=== PATIENT | female | born 1960 | race Caucasian/White ===

== ENCOUNTER 2020-01-23 16:28 | Emergency (ER) | payer BC ==
[2020-01-23 16:38] VITALS: BP 133/94; PULSE 75
--- NOTE | 2020-01-23 17:12 | EDM.PDOC ---
ED HPI GENERAL MEDICAL PROBLEM - General Chief Complaint: Lower Extremity Injury/Pain Stated Complaint: RT ANKLE AND LT ARM INJURY Time Seen by Provider: 01/23/20 16:33 Source of Information: Reports: Patient History Limitations: Reports: No Limitations - History of Present Illness INITIAL COMMENTS - FREE TEXT/NARRATIVE: Patient is a 59-year-old female who presents with complaints of pain to her right ankle, left knee, and left arm after a fall this morning. She states that she misstepped causing her ankle to twist. She then landed on her left knee and left arm. She has been able to ambulate since the time of the injury. States the majority of her pain is to her right ankle. She took some Tylenol for pain approximately 4 hours ago. Right Ankle Pain Score (Numeric/FACES): 8 - Related Data Allergies Allergy/AdvReac Type Severity Reaction Status Date / Time No Known Allergies Allergy Verified 01/23/20 16:38 Home Meds: Home Meds Aspirin [Adult Low Dose Aspirin EC] 81 mg PO DAILY 05/03/14 [History] Esomeprazole [NexIUM] 40 mg PO DAILY 05/03/14 [History] Losartan/Hydrochlorothiazide [Losartan-HCTZ 100-12.5 MG] 1 tab PO DAILY 05/03/14 [History] Metoprolol Succinate [Toprol Xl] 100 mg PO DAILY 05/03/14 [History] Simvastatin [Zocor] 40 mg PO DAILY 05/03/14 [History] amLODIPine [Norvasc] 2.5 mg PO DAILY 05/03/14 [History] Acetaminophen/HYDROcodone [[place] 325-5 MG] 1 - 2 tab PO Q6H PRN #30 tablet 02/27/15 [Rx] Docusate Sodium [Colace] 100 mg PO DAILY 09/05/15 [History] Past Medical History Cardiovascular History: Reports: High Cholesterol, Hypertension Respiratory History: Reports: Bronchitis, Recurrent Gastrointestinal History: Reports: Chronic Constipation, GERD 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 ED EXAM, GENERAL - Physical Exam Exam: See Below Exam Limited By: No Limitations General Appearance: Alert, WD/WN, No Apparent Distress Respiratory/Chest: No Respiratory Distress, Lungs Clear, Normal Breath Sounds, No Accessory Muscle Use, Chest Non-Tender Cardiovascular: Normal Peripheral Pulses, Regular Rate, Rhythm, No Edema, No Gallop, No JVD, No Murmur, No Rub Extremities: Other (Abrasion, no cyst, and mild edema to the left knee. Patient has full range of motion of the joint. Edema to the lateral aspect of the right ankle. No ecchymosis or deformity noted. Patient also has full range of motion of this joint.) Neurological: Alert, Oriented, CN II-XII Intact, Normal Cognition, Normal Gait, Normal Reflexes, No Motor/Sensory Deficits Psychiatric: Normal Affect, Normal Mood Skin Exam: Warm, Dry, Intact, Normal Color, No Rash Course - Vital Signs Last Recorded V/S: Last Vital Signs Temp 97.7 F 01/23/20 16:35 Pulse 75 01/23/20 16:35 Resp 18 01/23/20 16:35 BP 133/94 H 01/23/20 16:35 Pulse Ox 98 01/23/20 16:35 - Orders/Labs/Meds Orders: Active Orders 24 hr Category Date Time Status Ankle Min 3V Rt [CR] Stat Exams 01/23/20 17:05 Taken Knee 3V Lt [CR] Stat Exams 01/23/20 17:05 Taken DME for Discharge [COMM] Routine Oth 01/23/20 18:27 Ordered Meds: Medications Discontinued Medications Generic Name Dose Route Start Last Admin Trade Name Ofelia PRN Reason Stop Dose Admin Ketorolac Tromethamine 60 mg 01/23/20 18:24 01/23/20 18:35 Toradol IM 01/23/20 18:25 60 mg ONETIME ONE Administration - Re-Assessments/Exams Free Text/Narrative Re-Assessment/Exam: 01/23/20 1825 X-rays of the knee and ankle are negative for any acute fractures. We will give her a dose of IM Toradol. I have ordered an air splint to her right ankle. Discharge instructions as documented. Departure - Departure Time of Disposition: 18:27 Disposition: Home, Self-Care 01 Condition: Good Clinical Impression: Ankle sprain Qualifiers: Encounter type: initial encounter Involved ligament of ankle: unspecified ligament Laterality: right Qualified Code(s): S93.401A - Sprain of unspecified ligament of right ankle, initial encounter Knee contusion Qualifiers: Encounter type: initial encounter Laterality: left Qualified Code(s): S80.02XA - Contusion of left knee, initial encounter - Discharge Information *PRESCRIPTION DRUG MONITORING PROGRAM REVIEWED*: No *COPY OF PRESCRIPTION DRUG MONITORING REPORT IN PATIENT TORI: No Instructions: How to Use a Stirrup Ankle Brace, [id number], Ankle Sprain, [id number], Contusion, [id number] Referrals: Carolina Garcia MD [Primary Care Provider] - Forms: ED Department Discharge Additional Instructions: You were seen in the emergency department today for pain to your right ankle, left knee, and left arm after a fall. X-rays were done of your right ankle and left knee and found to be normal. It is likely that you have bruised your left knee and sprained your right ankle. While in the ER you received a shot of Toradol for pain and a splint was applied to your right ankle. Recommend that you ice and elevate the knee and ankle when at rest. You may use [id number] Tylenol or ibuprofen as needed for pain. Return to the ER as needed. Sepsis Event Note (ED) - Evaluation Sepsis Screening Result: No Definite Risk - Focused Exam Vital Signs: Vital Signs Temp Pulse Resp BP Pulse Ox 01/23/20 16:35 97.7 F 75 18 133/94 H 98 - My Orders Last 24 Hours: My Active Orders 01/23/20 17:05 Ankle Min 3V Rt [CR] Stat Knee 3V Lt [CR] Stat 01/23/20 18:27 DME for Discharge [COMM] Routine - Assessment/Plan Last 24 Hours: My Active Orders 01/23/20 17:05 Ankle Min 3V Rt [CR] Stat Knee 3V Lt [CR] Stat 01/23/20 18:27 DME for Discharge [COMM] Routine
[2020-01-23] MEDS ORDERED: Ketorolac 60 MG/2 ML SDV IM ONE (18:24)
--- NOTE | 2020-01-24 08:21 | CR ---
Right ankle: 3 views of the right ankle were obtained. Comparison: No prior right ankle exam. Plantar calcifications are seen. Small spur noted at the attachment of the Achilles tendon the calcaneus. Well-corticated bony density is noted off the inferior fibula compatible with old injury. Soft tissue swelling is noted. Minimal cortical avulsion fracture is noted off the distal tip of the fibula. No additional fracture or other bony abnormality is seen. Impression: 1. Minimal cortical avulsion fracture off the distal tip of the fibula. 2. Soft tissue swelling. 3. Other chronic findings. Diagnostic code #3 This report was dictated in MDT I agree with preliminary report from [facility], finalized on 01/23/20, 7:19 PM Central Daylight Time
--- NOTE | 2020-01-24 08:22 | CR ---
Left knee: AP, lateral and sunrise patellar views of the left knee were obtained. Minimal narrowing off the lateral patellofemoral joint is seen. Minimal patellar osteophyte is seen. Small spur is noted at the attachment of the quadriceps tendon to the patella. Mild medial joint space narrowing is seen. Lateral joint space is preserved. No acute fracture or other bony abnormality is seen. No joint effusion is seen. Impression: 1. Mild degenerative change as noted above. 2. Nothing acute is seen on 3 view left knee study. Diagnostic code #2 This report was dictated in MDT
== END 2020-01-23 18:50 | disposition home or self-care (01) ==
LOC: JD.ED 16:28
DX: S93.401A Sprain of unspecified ligament of right ankle, initial encounter (principal); S80.02XA Contusion of left knee, initial encounter; E78.00 Pure hypercholesterolemia, unspecified; I10 Essential (primary) hypertension; K21.9 Gastro-esophageal reflux disease without esophagitis; Z79.82 Long term (current) use of aspirin; Z79.899 Other long term (current) drug therapy; X50.1XXA Overexertion from prolonged static or awkward postures, initial encounter
CPT/HCPCS: 73562; 73610; 96372; 99283; J1885

== ENCOUNTER 2020-04-06 07:32 | Emergency (ER) | payer BC ==
[2020-04-06 07:44] VITALS: BP 149/88; PULSE 55
[2020-04-06] MEDS ORDERED: Acetaminophen/oxyCODONE 325-5 MG Tab PO ONE (07:53)
[2020-04-06] MEDS ORDERED: predniSONE 20 MG Tab PO ONE (07:54)
[2020-04-06] MEDS ORDERED: Ondansetron 4 MG Tab.DIS PO ONE (07:54)
--- NOTE | 2020-04-06 07:58 | EDM.PDOC ---
ED HPI GENERAL MEDICAL PROBLEM - General Chief Complaint: Neck Problem Stated Complaint: NECK PAIN Time Seen by Provider: 04/06/20 07:48 Source of Information: Reports: Patient History Limitations: Reports: No Limitations - History of Present Illness INITIAL COMMENTS - FREE TEXT/NARRATIVE: 60-year-old female presents to the ED for gradually worsening left cervical neck pain. No known injuries falls. Pain this morning was excruciating when she is stood up particular at the base of the left side of the skin scalp that caused her to nearly fall to the floor due to the severity of the muscle spasm. No known injuries. No recent chiropractic manipulation or massage therapy. No previous similar problems with her neck. Pain radiates into the left superior belly of the trapezius muscle but not down the arm or leg. She has no problems with bowel or bladder function. She has not taken any medication yet this morning for pain relief. Onset: Gradual Onset Date: 04/04/20 Duration: Day(s):, Getting Worse Location: Reports: Neck Quality: Reports: Ache, Sharp, Stabbing Severity: Moderate Improves with: Reports: Rest Worsens with: Reports: Movement Context: Reports: Other. 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) (No medications so far today.) Neck Pain Score (Numeric/FACES): 10 - Related Data Allergies Allergy/AdvReac Type Severity Reaction Status Date / Time No Known Allergies Allergy Verified 04/06/20 07:44 Home Meds: Home Meds Aspirin [Adult Low Dose Aspirin EC] 81 mg PO DAILY 05/03/14 [History] Esomeprazole [NexIUM] 40 mg PO DAILY 05/03/14 [History] Losartan/Hydrochlorothiazide [Losartan-HCTZ 100-12.5 MG] 1 tab PO DAILY 05/03/14 [History] Metoprolol Succinate [Toprol Xl] 100 mg PO DAILY 05/03/14 [History] Simvastatin [Zocor] 40 mg PO DAILY 05/03/14 [History] amLODIPine [Norvasc] 2.5 mg PO DAILY 05/03/14 [History] Acetaminophen/HYDROcodone [[place] 325-5 MG] 1 - 2 tab PO Q6H PRN #30 tablet 02/27/15 [Rx] Docusate Sodium [Colace] 100 mg PO DAILY 09/05/15 [History] Diclofenac Sodium [Voltaren] 75 mg PO BIDMEALS #16 tab.cr 04/06/20 [Rx] Hydrocodone/Acetaminophen [[place] 5-325 Tablet] 1 - 2 each PO Q4H PRN #18 tablet 04/06/20 [Rx] predniSONE [Prednisone] 20 mg PO BID #11 tablet 04/06/20 [Rx] Past Medical History Cardiovascular History: Reports: High Cholesterol, Hypertension Respiratory History: Reports: Bronchitis, Recurrent Gastrointestinal History: Reports: Chronic Constipation, GERD 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 Other Musculoskeletal History: Pt reports chronic back pain - Past Surgical History Female Surgical History: Reports: Hysterectomy Social & Family History - Caffeine Use Caffeine Use: Reports: Coffee - Living Situation & Occupation Living situation: Reports: Occupation: Unemployed ED ROS GENERAL - Review of Systems Review Of Systems: See Below Constitutional: Denies: Fever, Chills, Malaise, Weakness, Fatigue HEENT: Reports: No Symptoms Respiratory: Reports: No Symptoms Cardiovascular: Reports: No Symptoms Endocrine: Reports: No Symptoms GI/Abdominal: Reports: No Symptoms Musculoskeletal: Reports: Neck Pain, Shoulder Pain (Left superior trapezius muscle pain.) Skin: Reports: No Symptoms Neurological: Reports: No Symptoms Psychiatric: Reports: No Symptoms Hematologic/Lymphatic: Reports: No Symptoms Immunologic: Reports: No Symptoms ED EXAM, UPPER BACK/NECK PAIN - Physical Exam Exam: See Below Exam Limited By: No Limitations General Appearance: Alert, WD/WN, Moderate Distress, Other (Temperature is 36.0. Heart rate 55 and sinus respiratory is 18 with O2 sats of 98% room air BP slightly elevated 149/88.) Eye Exam: Bilateral Eye: Normal Inspection, PERRL Throat/Mouth Exam: Normal Inspection, Normal Lips, Normal Oropharynx Head Exam: Atraumatic, Normocephalic Neck Exam: Limited Range of Motion (She has loss of flexion and extension of the neck.), Muscle Spasm, Paraspinous Muscle Tender (Diffuse paraspinous muscle tenderness on the left side particularly mid cervical spine.), Other (Axial traction with the neck to the left causes pain localized to the base of the scalp on the left side but not radiating to her left upper extremity.) Nexus Criteria: No: Posterior, Midline Cervical Tenderness, Evidence of Intoxication, Altered Level of Consciousness, Focal Neurological Deficit, Painful Distraction Injuries Cardiovascular/Respiratory: Regular Rate, Rhythm, No M/R/G, Normal Peripheral Pulses Course - Vital Signs Last Recorded V/S: Last Vital Signs Temp 36.0 C L 04/06/20 07:41 Pulse 55 L 04/06/20 07:41 Resp 18 04/06/20 07:41 BP 149/88 H 04/06/20 07:41 Pulse Ox 98 04/06/20 07:41 - Orders/Labs/Meds Meds: Medications Discontinued Medications Generic Name Dose Route Start Last Admin Trade Name Ofelia PRN Reason Stop Dose Admin Ondansetron HCl 4 mg 04/06/20 07:54 04/06/20 08:00 Zofran Odt PO 04/06/20 07:55 4 mg ONETIME ONE Administration Oxycodone/Acetaminophen 1 tab 04/06/20 07:53 04/06/20 08:20 Percocet 325-5 Mg PO 04/06/20 07:54 1 tab ONETIME ONE Administration Prednisone 20 mg 04/06/20 07:54 04/06/20 08:20 Prednisone PO 04/06/20 07:55 20 mg ONETIME ONE Administration - Radiology Interpretation Free Text/Narrative:: 60-year-old female presents to the ED with acute left-sided cervical neck pain that is gradually worsened over the last 48 hours. No known injuries. Any movement of the neck particular to the left side causes exacerbation of pain at the base of the skull and mid cervical spine. No radiculopathy into either upper extremity. Appears to have facet joint inflammation likely due to underlying degenerative arthritic change. Plan Percocet 1 tablet 5 325 mg by mouth with Zofran 4 mg sublingual. Prednisone [address] cervical spine to be done. - Re-Assessments/Exams Free Text/Narrative Re-Assessment/Exam: 04/06/20 09:34 T of the cervical spine is been completed. It reveals mild anterior osteophytes at C5-6 and C6-7 levels. During the dens and the anterior arch of C1. Mild scattered degenerative changes seen within the apophyseal joints bilaterally. Minimal kyphosis centered to the lower cervical spine most likely degenerative in etiology. No bony central or neuroforaminal stenosis is seen. No acute fractures or subluxation appreciated. 09/13/20 09:39 I have discussed the findings of the CT scan with the patient. She is feeling somewhat improved. Plan will be to place her on anti- inflammatory Voltaren 75 mg twice daily for the next 8 days. Prednisone 20 mg morning and supper for the next 5 days. [place] 5/325 mg 1 or 2 every 4-6 hours necessary for pain relief. Follow-up with personal care physician if not markedly improved in 7 days time for physiotherapy referral. Departure - Departure Time of Disposition: 09:39 Disposition: Home, Self-Care 01 Condition: Fair Clinical Impression: Cervical pain (neck), Degenerative arthritis of cervical spine - Discharge Information *PRESCRIPTION DRUG MONITORING PROGRAM REVIEWED*: Not Applicable *COPY OF PRESCRIPTION DRUG MONITORING REPORT IN PATIENT TORI: Not Applicable Prescriptions: Hydrocodone/Acetaminophen [[place] 5-325 Tablet] 1 - 2 each PO Q4H PRN #18 tablet PRN Reason: cervical neck pain predniSONE [Prednisone] 20 mg PO BID #11 tablet Diclofenac Sodium [Voltaren] 75 mg PO BIDMEALS #16 tab.cr Instructions: Facet Syndrome Referrals: Carolina Garcia MD [Primary Care Provider] - Forms: ED Department Discharge Additional Instructions: Evaluation in the emergency room this morning in regards to gradually worsening cervical neck pain over the last 3 days. Marked pain at the base of the skull and cervical 1 to level on the left side and also marked paraspinal muscle spasm in the mid cervical spine. CT scan of the neck reveals degenerative arthritic change particularly at the C1, C2 level. Mild degenerative changes are appreciated at the C5-6 and C6-7 levels. There is no herniated disc or nerve root compression in the neck. Current pain syndrome is due to underlying arthritic changes with acute inflammation causing paraspinal muscle spasm. Treatment is to reduce the inflammation in the neck bones. It was started in the ED. You will need a dose of prednisone 20 mg at suppertime tonight. Suggest dose of Voltaren 75 mg at suppertime as well. Pain medication is [place] 5/325 mg tabs 1 or 2 every 4-6 hours necessary for pain relief usually with a little food in your stomach. Expect gradual improvement in cervical neck pain over the next 72 to 96 hours. If not pain-free in 7 days time you should follow-up with your personal care provider to arrange for physiotherapy program. Sepsis Event Note (ED) - Evaluation Sepsis Screening Result: No Definite Risk - Focused Exam Vital Signs: Vital Signs Temp Pulse Resp BP Pulse Ox 04/06/20 07:41 36.0 C L 55 L 18 149/88 H 98
--- NOTE | 2020-04-06 09:24 | CT ---
CTCervical spine Technique: Multiple axial sections were obtained from above C1 inferiorly to bottom of T2. Reconstructed sagittal and coronal images were reviewed. Comparison: No prior cervical spine imaging is available. Findings: Mild anterior osteophytes noted at C5-6 and C6-7. Mild degenerative change is noted between the dens and anterior arch of C1. Mild scattered degenerative change seen within the apophyseal joints. Minimal kyphosis centered to the lower cervical spine is seen most likely degenerative in etiology. No bony central or bony neural foraminal stenosis is seen. No acute fracture is appreciated. No abnormal subluxation is seen. Mild scoliosis is noted. Impression: 1. Mild degenerative change and mild scoliosis. 2. Nothing acute is appreciated. Diagnostic code #2 This report was dictated in MDT
== END 2020-04-06 10:05 | disposition home or self-care (01) ==
LOC: JD.ED 07:32
DX: M46.82 Other specified inflammatory spondylopathies, cervical region (principal); E78.00 Pure hypercholesterolemia, unspecified; I10 Essential (primary) hypertension; K21.9 Gastro-esophageal reflux disease without esophagitis; Z79.899 Other long term (current) drug therapy; Z79.82 Long term (current) use of aspirin
CPT/HCPCS: 72125; 99283; A9270; J7512